=== PATIENT | male | born 1980 | race African-American/Black ===

== ENCOUNTER 2017-05-01 12:27 | Emergency (ER) | payer SELFPAY ==
[~2017-05-01] VITALS: Ht 188 cm; Wt 72.1 kg
[2017-05-01] MEDS ORDERED: SODIUM CHLORIDE 0.9% 1,000ML IVBOLUS ONE (13:00)
[2017-05-01] MEDS ORDERED: SODIUM CHLORIDE FLUSH 10ML SYR IVF ONE (13:00)
[2017-05-01] MEDS ORDERED: PLEASE ENTER ALLERGIES MC SCH ×2 (13:00)
[2017-05-01 13:22] LABS: BLOOD UREA NITROGEN 24 mg/dL (7-18)
[2017-05-01 13:26] LABS: IS PT STATUS REG ER OR PRE ER? YES
[2017-05-01] MEDS ORDERED: KETOROLAC 30 MG/1 ML ONE (13:26)
[2017-05-01] MEDS ORDERED: ONDANSETRON 2MG/ML, 2ML ONE (13:27)
[2017-05-01] MEDS ORDERED: MAALOX/HYOSCYAMINE/LIDOCAINE 45 ML BOTTLE ONE (13:27)
[2017-05-01] MEDS ORDERED: ONDANSETRON 2MG/ML, 2ML IVPush ONE (13:30)
[2017-05-01] MEDS ORDERED: MAALOX/HYOSCYAMINE/LIDOCAINE 45 ML BOTTLE PO ONE (13:30)
[2017-05-01] MEDS ORDERED: KETOROLAC 30 MG/1 ML IVPush ONE (13:30)
[2017-05-01] MEDS ORDERED: HALOPERIDOL 5 MG/ML IM STA (13:42)
[2017-05-01] MEDS ORDERED: HALOPERIDOL 5 MG/ML ONE (13:46)
[2017-05-01] MEDS ORDERED: LORazepam 2 MG/ML, 1ML ONE (13:47)
[2017-05-01] MEDS ORDERED: FAMOTIDINE 20 MG TABLET ONE (13:47)
[2017-05-01] MEDS ORDERED: LORazepam 2 MG/ML, 1ML IVPush ONE (14:00)
[2017-05-01] MEDS ORDERED: FAMOTIDINE 20 MG TABLET PO ONE (14:00)
[2017-05-01 14:35] VITALS: BP 130/103
== END 2017-05-01 15:39 | disposition home or self-care (01) ==
LOC: ED 13:50
DX: R07.89 Other chest pain (principal); R11.10 Vomiting, unspecified; F12.10 Cannabis abuse, uncomplicated
CPT/HCPCS: 36415; 71010; 80048; 82040; 83880; 84484; 85025; 93005; 96372; 96374; 96375; 99285; J1630; J1885; J2060; J2405; J7030